=== PATIENT | female | born 1955 | race Native Hawaiian/Other Pacific Islander ===

== ENCOUNTER 2022-02-21 18:05 | Emergency (ER) | payer OTHER ==
[~2022-02-21] VITALS: Ht 165.1 cm; Wt 83.9 kg
[2022-02-21 18:07] VITALS: TEMP 98.7
[2022-02-21 18:41] LABS: PLATELET COUNT 208 K/uL (152-353)
[2022-02-21 19:18] LABS: POTASSIUM 3.7 mmol/L (3.6-5.2)
[2022-02-21 20:30] VITALS: BP 172/88
== END 2022-02-21 20:53 | disposition short-term general hospital (02) ==
LOC: ED 18:05
PROVIDERS: Emergency Medicine
DX: Z98.890 Other specified postprocedural states (principal); Z86.74 Personal history of sudden cardiac arrest; R07.89 Other chest pain
CPT/HCPCS: 36415; 80053; 84484; 85027; 85610; 93005; 99284